=== PATIENT | male | born 1960 | race Caucasian/White ===

== ENCOUNTER 2017-10-07 07:57 | Day surgery (SDC) | payer OTHER ==
[~2017-10-07 07:57] MED LIST: CEFAZOLIN 2 GM/50 ML (PMX) 50 ML IVPB
[2017-10-07] MEDS ORDERED: ONDANSETRON 4 MG INJ (09:00)
[2017-10-07] MEDS ORDERED: ACETAMINOPHEN 1000 MG/100 ML IVPB (09:00)
[2017-10-07] MEDS ORDERED: PROPOFOL 200 MG INJ (09:00)
[2017-10-07] MEDS ORDERED: DEXAMETHASONE 4 MG/ML 1 ML INJ (09:00)
[2017-10-07] MEDS ORDERED: SUCCINYLCHOLINE CHLORIDE 100 MG/5 ML SYG IV (09:00)
[2017-10-07] MEDS ORDERED: ROCURONIUM 50 MG INJ (09:00)
[2017-10-07 09:28] LABS: ADD MAN DIFF? NO
[2017-10-07] MEDS ORDERED: MIDAZOLAM 1 MG/ML 2 ML INJ (09:30)
[2017-10-07] MEDS: DEXAMETHASONE 1 MG TAB PO (09:30)
[2017-10-07] MEDS: traMADol 50 MG TAB PO (09:30)
[2017-10-07] MEDS ORDERED: FENTAnyl 50 MCG/ML VIAL (09:30)
[2017-10-07] MEDS ORDERED: METOCLOPRAMIDE 10 MG INJ (09:31)
[2017-10-07 09:32] LABS: WHITE BLOOD COUNT 7.8 10^3/ul (4.8-10.8)
[2017-10-07 09:32] LABS: BASOPHILS % 0.5 % (0.0-2.0); EOSINOPHILS # 0.4 10^3/ul (0.0-0.5); EOSINOPHILS % 4.7 % (0.0-7.0); HEMATOCRIT 39.1 % (42.0-52.0); HEMOGLOBIN 13.3 g/dl (14.0-18.0); LYMPHOCYTES # 1.8 10^3/ul (0.8-2.9); LYMPHOCYTES % 22.7 % (15.0-51.0); MEAN CORPUSCULAR HEMOGLOBIN 31.7 pg (29.0-33.0); MEAN CORPUSCULAR VOLUME 93.1 fl (82.0-101.0); MEAN PLATELET VOLUME 11.5 fl (7.4-10.4); MONOCYTE # 1.1 10^3/ul (0.3-0.9); NEUTROPHIL # 4.5 10^3/ul (1.6-7.5); NEUTROPHILS % 57.6 % (39.0-77.0); PLATELET COUNT 146 10^3/UL (140-415); RED CELL DISTRIBUTION WIDTH 12.8 % (11.5-14.5)
[2017-10-07 09:34] LABS: ADD UMIC NO; UR ASCORBIC ACID NEGATIVE (NEGATIVE); UR BILIRUBIN (Dip) NEGATIVE (NEGATIVE); UR BLOOD (Dip) NEGATIVE (NEGATIVE); UR CLARITY CLEAR (CLEAR); UR COLOR YELLOW (YELLOW); UR GLUCOSE (Dip) NEGATIVE (NEGATIVE); UR KETONES (Dip) NEGATIVE (NEGATIVE); UR LEUKOCYTE ESTERASE (Dip) NEGATIVE Leu/ul (NEGATIVE); UR NITRITE (Dip) NEGATIVE (NEGATIVE); UR SPECIFIC GRAVITY (Dip) 1.013 (1.003-1.030); UR TOTAL PROTEIN (Dip) NEGATIVE (NEGATIVE); UR UROBILINOGEN (Dip) NEGATIVE (NEGATIVE)
[2017-10-07 09:51] LABS: ALANINE AMINOTRANSFERASE 30 IU/L (13-69); ALBUMIN 3.9 g/dl (3.3-4.9); ALKALINE PHOSPHATASE 57 IU/L (42-121); ANION GAP 11 (8-16); ASPARTATE AMINO TRANSFERASE 18 IU/L (15-46); BILIRUBIN,INDIRECT 0.3 mg/dl (0-1.1); BILIRUBIN,TOTAL 0.3 mg/dl (0.2-1.3); BLOOD UREA NITROGEN 14 mg/dl (7-20); CALCIUM 8.4 mg/dl (8.4-10.2); CARBON DIOXIDE 24 mmol/L (21-31); CHLORIDE 114 mmol/L (97-110); CREATININE 0.88 mg/dl (0.61-1.24); GLUCOSE 93 mg/dl (70-220); INR 0.93; PARTIAL THROMBOPLASTIN TIME 30.5 Sec (25.0-35.0); POTASSIUM 4.2 mmol/L (3.5-5.1); PROTIME 12.5 Sec (11.9-14.9); SODIUM 145 mmol/L (135-144); TOTAL PROTEIN 6.9 g/dl (6.1-8.1)
[2017-10-07] MEDS ORDERED: LIDOCAINE 2% (SDV) 5 ML INJ (10:06)
[2017-10-07] MEDS ORDERED: PROPOFOL 20 ML (10:06)
[2017-10-07] MEDS ORDERED: ROPIVACAINE 0.5 % 30 ML VIAL (10:07)
[2017-10-07] MEDS ORDERED: CEFAZOLIN 1 GM INJ (10:08)
[2017-10-07] MEDS ORDERED: SUGAMMADEX SODIUM 200 MG/2 ML VIAL IV (10:11)
[2017-10-07] MEDS: TRANEXAMIC ACID 1,000 MG in DEXTROSE 5% 100 ML IVPB (12:16)
[2017-10-07] MEDS ORDERED: HYDROmorphONE 1 MG/5 ML IV SYRINGE IV ×2 (13:00)
[2017-10-07] MEDS ORDERED: hydrALAzine 20 MG INJ IV (13:00)
[2017-10-07] MEDS ORDERED: ONDANSETRON 4 MG INJ IV (13:00)
[2017-10-07] MEDS ORDERED: MEPERIDINE 25 MG INJ IV (13:00)
[2017-10-07] MEDS ORDERED: FENTAnyl 50 MCG/ML VIAL IV ×2 (13:00)
[2017-10-07] MEDS ORDERED: IPRATROPIUM (NEB) 0.5 MG/2.5 ML AMP HHN (13:00)
[2017-10-07] MEDS ORDERED: DIPHENHYDRAMINE 50 MG INJ IV (13:00)
[2017-10-07] MEDS ORDERED: ALBUTEROL 0.083% (NEB) 2.5 MG/3 ML AMP (13:01)
== END 2017-10-07 14:50 | disposition home or self-care (01) ==
LOC: SDS 07:57
DX: M75.102 Unspecified rotator cuff tear or rupture of left shoulder, not specified as traumatic (principal); M75.42 Impingement syndrome of left shoulder; E78.5 Hyperlipidemia, unspecified; J44.9 Chronic obstructive pulmonary disease, unspecified; G47.30 Sleep apnea, unspecified; S46.212D Strain of muscle, fascia and tendon of other parts of biceps, left arm, subsequent encounter; X58.XXXD Exposure to other specified factors, subsequent encounter
CPT/HCPCS: 29827; 71045; 80053; 81003; 85025; 85610; 85730; 93005; 94664

== ENCOUNTER 2018-02-10 09:15 | Day surgery (SDC) | payer OTHER ==
[~2018-02-10 09:15] MED LIST changes: +CEFAZOLIN 1 GM INJ; -CEFAZOLIN 2 GM/50 ML (PMX) 50 ML IVPB; +METOCLOPRAMIDE 10 MG INJ; +ONDANSETRON 4 MG INJ; +ROCURONIUM 50 MG INJ; +SUCCINYLCHOLINE CHLORIDE 100 MG/5 ML SYG IV; +SUGAMMADEX SODIUM 200 MG/2 ML VIAL IV
[2018-02-10] MEDS: GABAPENTIN 300 MG CAP PO (09:43)
[2018-02-10] MEDS: traMADol 50 MG TAB PO (09:43)
[2018-02-10] MEDS: DEXAMETHASONE 1 MG TAB PO (09:43)
[2018-02-10] MEDS ORDERED: FENTAnyl 50 MCG/ML VIAL (10:09)
[2018-02-10] MEDS ORDERED: MIDAZOLAM 1 MG/ML 2 ML INJ (10:09)
[2018-02-10] MEDS ORDERED: PROPOFOL 20 ML (10:10)
[2018-02-10] MEDS ORDERED: LIDOCAINE 2% (SDV) 5 ML INJ (10:10)
[2018-02-10] MEDS ORDERED: hydrALAzine 20 MG INJ (11:08)
[2018-02-10] MEDS ORDERED: DIPHENHYDRAMINE 50 MG INJ IV (11:30)
[2018-02-10] MEDS ORDERED: ONDANSETRON 4 MG INJ IV (11:30)
[2018-02-10] MEDS ORDERED: hydrALAzine 20 MG INJ IV (11:30)
[2018-02-10] MEDS ORDERED: MEPERIDINE 25 MG INJ IV (11:30)
[2018-02-10] MEDS ORDERED: LEVALBUTEROL (NEB) 1.25 MG/0.5 ML AMP HHN (11:30)
[2018-02-10] MEDS ORDERED: IPRATROPIUM (NEB) 0.5 MG/2.5 ML AMP HHN (11:30)
[2018-02-10] MEDS ORDERED: LABETALOL HCL 20MG INJ IV (11:30)
[2018-02-10] MEDS ORDERED: HYDROmorphONE 1 MG/5 ML IV SYRINGE IV ×3 (11:30)
[2018-02-10] MEDS ORDERED: FENTAnyl 50 MCG/ML VIAL IV ×2 (11:30)
[2018-02-10] MEDS ORDERED: KETOROLAC 30 MG INJ IV (11:30)
[2018-02-10] MEDS ORDERED: DEXAMETHASONE 4 MG/ML 1 ML INJ (11:53)
[2018-02-10] MEDS: BUPIVACAINE 0.5% (SDV) 30 ML, morphine SULFATE (PF) 8 MG, EPINEPHrine 0.3 MG, KETOROLAC... IRR (12:14)
== END 2018-02-10 14:30 | disposition home or self-care (01) ==
LOC: SDS 09:15
DX: M25.811 Other specified joint disorders, right shoulder (principal); M19.011 Primary osteoarthritis, right shoulder; S46.211D Strain of muscle, fascia and tendon of other parts of biceps, right arm, subsequent encounter; S46.811A Strain of other muscles, fascia and tendons at shoulder and upper arm level, right arm, initial encounter; X58.XXXD Exposure to other specified factors, subsequent encounter; J45.909 Unspecified asthma, uncomplicated; E78.5 Hyperlipidemia, unspecified
CPT/HCPCS: 29824; 94664